=== PATIENT | male | born 1985 | race Caucasian/White ===

== ENCOUNTER 2023-05-07 14:23 | Emergency (ER) | payer OTHER, SELFPAY ==
[2023-05-07 14:24] VITALS: BP 138/94; PULSE 97; RESP 16; TEMP 36.1; O2SAT 100; BMI 33.9
--- NOTE | 2023-05-07 15:08 | VDLE_ITS ---
Reason For Study: Left leg pain RIGHT LEFT CFV is compressible, spontaneous, phasic, GSV is normal. competent and demonstrates normal CFV is compressible, spontaneous, phasic, augmentation. competent, and demonstrates normal Procedure augmentation. This is a venous duplex using B-mode, color FV is compressible, spontaneous, phasic, flow and spectral Doppler. competent and demonstrates normal Exam performed portable in ED. augmentation. A preliminary report was called and/or faxed POP V is compressible, spontaneous, phasic, to Dr. Camilo. competent and demonstrates normal augmentation. T/P Trunk is compressible. PTV is compressible. LT PerV is compressible. VL/Venous Duplex US, Unilateral Interpretation Summary Deep veins of the left lower extremity are patent and compressible segmentally. There is no evidence of left lower extremity deep vein thrombosis. The left great saphenous vein nima ears patent and compressible segmentally. Ordering Physician: Rashel Chisholm Performed By: Charley Ayers RVT
--- NOTE | 2023-05-07 18:56 | EDS_ITS ---
HPI History of Present Illness HPI Narrative: Patient presents with left lower leg pain that has been getting worse over the past 10 days. Patient states it is intermittent. Patient states it comes on gradually. Patient describes it as dull. Patient states nothing seems to make it worse. Patient states that sometimes walking and moving will make it get better. Patient admits to some very slight intermittent paresthesias but denies any weakness. Patient denies any trauma or injury. Patient denies any fevers or chills. Patient denies any back pain. Chief Complaint: Lower Extremity Injury Informant: patient Onset/Context/Timing Onset: Days (10) Context: Gradual Onset Timing: Intermittent Quality of Pain: Dull Location: Left knee, lower leg, and ankle Worsened by: Nothing Relieved by: Movement and ambulation Associated Symptoms Associated Symptoms: Positive for Parasthesia; Negative for Weakness or Loss of Funtion PFSH PFS Medical History (Updated 05/07/23 @ 19:[address] Samm Shoemaker DO) Hypertension Home Medications meloxicam 15 mg tablet 15 mg PO DAILY #14 tabs 05/07/23 [Rx Last Taken Unknown] Allergy/AdvReac Type Severity Reaction Status Date / Time No Known Allergies Allergy Verified 05/07/23 14:26 Surgical History (Updated 05/07/23 @ 18:[address] Samm Shoemaker DO) Hx of LASIK Hx of vasectomy Social History Smoking Status: Never smoker ROS ROS ED Constitutional Constitutional ED: Denies chills or fever(s) Eyes Eyes: Denies blurry vision or change in vision ENT ENT ED: Denies rhinorrhea or sore throat Cardiovascular Cardiovascular: Denies chest pain or palpitations Respiratory/Chest Respiratory/Chest: Denies cough or dyspnea Gastrointestinal Gastrointestinal: Denies nausea or vomiting Genitourinary Genitourinary ED: Denies dysuria or hematuria Musculoskeletal Musculoskeletal: Denies back pain or neck pain Integumentary Denies abscess or rash Neurologic Neurologic: Denies headache(s) or weakness Allergic/Immunologic Allergic/Immunologic ED: Denies mouth swelling or urticaria EXAM Physical Exam Const Vital Signs: 05/07/23 14:24 Temperature 96.9 F L Temperature Source Temporal Pulse Rate 97 Respiratory Rate 16 Blood Pressure 138/94 H Blood Pressure Mean 108 Pulse Ox 100 Oxygen Delivery Method Room Air Positive well nourished and well developed General Appearance ED: well developed and NAD HEENT Reports moist mucous membranes Neck full ROM and supple Extremity Extremity Narrative: There is slight tenderness over the lateral aspect of the left knee. There is no effusion. There is no bony crepitance or step-off noted. There is no calf tenderness. There is no palpable cords noted. There is no edema noted. There is good range of motion of the left knee and ankle. Strength is 5/5 bilaterally in the lower extremities. There are no sensory deficits noted. Posterior tibial pulses are equal bilaterally. Neuro oriented x3, CN's II-XII intact bilaterally, moves all extremities and no sensory deficits noted Sensorium / Orientation: alert Motor Exam: strength 5/5 throughout Psych mental status grossly normal Skin no wounds MDM MDM MDM Narrative Medical decision making narrative: Differential diagnosis includes DVT, neuropathy, and myalgia. Venous duplex of the left lower extremity was obtained to assess for DVT. Radiography Diagnostic Testing: Clinical Impression(s) from Imaging Studies Venous Doppler Study 05/07/23 15:08 Interpretation Summary Deep veins of the left lower extremity are patent and compressible segmentally. There is no evidence of left lower extremity deep vein thrombosis. The left great saphenous vein appears patent and compressible segmentally. Ordering Physician: Rashel Chisholm Performed By: Charley Ayers RVT Venous duplex of the left lower extremity was obtained. There is no evidence of DVT. Treatment and Re-Evaluation Narrative: Patient was advised of his findings. Patient was given a prescription for m eloxicam. Patient was instructed to follow-up with his primary care physician in 5 to 7 days. Patient was instructed return if worse in any way. Patient understood and was agreeable with the plan. All questions were answered. Discharge Plan Triage Chief Complaint: Lower Extremity Injury ED Provider: Samm Shoemaker Dx/Rx/DC Orders Clinical Impression: Pain in left lower leg, Hypertension Instructions: ED Pain, Acute, Uncertain Cause Prescriptions: New meloxicam 15 mg tablet 15 mg PO DAILY Qty: 14 0RF Primary Care Provider: NOT,DEFINED Referrals: NOT,DEFINED [Primary Care Provider] - 3-5 Days Disposition Disposition: Home, Self Care
--- OUTSIDE RECORDS SUMMARY | 2023-05-07 19:17 | XMS RPT_ITS | CCD ---
Author Name Unknown Address [address] [place] [address] Organization [facility] Care Team Providers Care Patient Financial Coordinator Name Role Phone Linda Balbuena Unavailable Unavailable Linda Balbuena Unavailable Unavailable Linda Balbuena Unavailable Unavailable Unavailable Unavailable Unavailable Linda Balbuena Primary Care Provider Linda Balbuena MD Primary Care Provider LINDA BALBUENA Attending Unavailable LINDA BALBUENA Primary Care Unavailable LINDA BALBUENA Primary Care Unavailable Linda Balbuena MD Primary Care Provider LINDA BALBUENA Primary Care Unavailable LINDA BALBUENA Primary Care Unavailable Medications Current Medications Medication Drug Class(es) Dates Sig (Normalized) Sig (Original) amoxicillin 500 mg oral tablet (1 source) Penicillin-class Antibacterial Start: 07-13-2022 End: 07-23-2022 take 1 tablet by mouth twice daily Amoxicillin 500 mg tablet Indications: Streptococcal pharyngitis Take 1 tablet by mouth twice daily for 10 days. 20 tablet 0 07/13/2022 07/23/2022 Active Completed/Discontinued Medications Medication Drug Class(es) Dates Sig (Normalized) Sig (Original) 12 hr fexofenadine hydrochloride 60 mg / pseudoephedrine hydrochloride 120 mg extended release oral tablet (3 sources) alpha-Adrenergic Agonist, Histamine-1 Receptor Antagonist Airam-D Allergy & Congestion 60-120 MG Oral Tablet Extended Release 12 Hour Refills: 0 Active loratadine 10 mg oral tablet (2 sources) loratadine (CLARITIN) 10 mg tablet Take 10 mg by mouth as needed. 0 Active Problems Active Problems Problem Classification Problem Date Documented Da te Episodic/Chronic Acute bronchitis (11 sources) Acute bronchitis; Translations: [Acute bronchitis] Episodic Allergic reactions (11 sources) Allergic condition; Translations: [Allergy, unspecified, initial encounter] Episodic Disorders of lipid metabolism (10 sources) Hyperlipidemia; Translations: [Other and unspecified hyperlipidemia] Chronic Essential hypertension (14 sources) Hypertensive disorder; Translations: [Unspecified essential hypertension] Onset: 12-11-2022 12-11-2022 Chronic Immunizations and screening for infectious disease (6 sources) Suspected disease caused by 2019-nCoV; Translations: [Contact with or exposure to other viral diseases] Episodic Inflammation; infection of eye (except that caused by tuberculosis or sexually transmitteddisease) (11 sources) Conjunctivitis; Translations: [Conjunctivitis, unspecified] Episodic Malaise and fatigue (12 sources) Fatigue; Translations: [Other malaise and fatigue] Episodic Other circulatory disease (11 sources) H/O: hypertension; Translations: [Personal history of other diseases of circulatory system] Episodic Other nutritional; endocrine; and metabolic disorders (3 sources) Obesity; Translations: [Obesity, unspecified] Chronic Other screening for suspected conditions (not mental disorders or infectious disease) (8 sources) Patient encounter status; Translations: [Screening for lipoid disorders] Episodic Other upper respiratory infections (1 source) Bacterial sinusitis; Translations: [Chronic sinusitis, unspecified] 03-07-2023 Chronic Other upper respiratory infections (20 sources) Acute sinusitis; Translations: [Acute maxillary sinusitis] Episodic Past or Other Problems Problem Classification Problem Date Documented Da te Episodic/Chronic Other circulatory disease (3 sources) Elevated blood-pressure reading, without diagnosis of hypertension; Translations: [Elevated blood pressure] Episodic Unclassified (2 sources) Screening status; Translations: [Screening cholesterol level] Unclassified (1 source) Patient encounter status; Translations: [Screening cholesterol level] Unclassified (8 sources) Elevated blood pressure; Translations: [Elevated blood pressure] NEGATED: Highlighted row has not occurred!Residual codes; unclassified (14 sources) Disease Episodic Results Test Name Value Interpretation Reference Range Facil ity Vital Signs Date Time Vital Sign Value Performing Clinician Facility 03-07-2023 14:01-0500 Body temperature 97.3 [degF] Krislyn Aberegg PA Work Phone: [facility] 03-07-2023 14:01-0500 Body weight 111.95 kg Krislyn Aberegg PA Work Phone: [facility] 03-07-2023 14:01-0500 Diastolic blood pressure 76 mm[Hg] Krislyn Aberegg PA Work Phone: [facility] 03-07-2023 14:01-0500 Heart rate 82 /min Krislyn Aberegg PA Work Phone: [facility] 03-07-2023 14:01-0500 Respiratory rate 16 /min Krislyn Aberegg PA Work Phone: [facility] 03-07-2023 14:01-0500 SaO2% (BldA) [Mass fraction] 98 % Krislyn Aberegg PA Work Phone: [facility] 03-07-2023 14:01-0500 Systolic blood pressure 120 mm[Hg] Krislyn Aberegg PA Work Phone: [facility] 12-11-2022 09:10-0400 Body mass index (BMI) [Ratio] 33.5 kg/m2 Linda Balbuena MD Work Phone: [facility] 12-11-2022 09:10-0400 Body temperature 98.1 [degF] Linda Balbuena MD Work Phone: [facility] 12-11-2022 09:10-0400 Body weight 112.04 kg Lidna Balbuena MD Work Phone: [facility] 12-11-2022 09:10-0400 Diastolic blood pressure 82 mm[Hg] Linda Balbuena MD Work Phone: [facility] 12-11-2022 09:10-0400 Systolic blood pressure 128 mm[Hg] Linda Balbuena MD Work Phone: [facility] 07-13-2022 07:54-0400 Body temperature 98.91 [degF] Tor Paz MD Work Phone: [facility] 07-13-2022 07:54-0400 Body weight 109.41 kg Tor Paz MD Work Phone: [facility] 07-13-2022 07:54-0400 Diastolic blood pressure 68 mm[Hg] Tor Paz MD Work Phone: [facility] 07-13-2022 07:54-0400 Heart rate 93 /min Tor Paz MD Work Phone: [facility] 07-13-2022 07:54-0400 Respiratory rate 18 /min Tor Paz MD Work Phone: [facility] 07-13-2022 07:54-0400 SaO2% (BldA) [Mass fraction] 97 % Tor Paz MD Work Phone: [facility] 07-13-2022 07:54-0400 Systolic blood pressure 124 mm[Hg] Tor Paz MD Work Phone: [facility] 12-08-2021 09:15-0400 Body height 182.88 cm Linda Balbuena Work Phone: [facility] Work Phone: 12-08-2021 09:15-0400 Body mass index (BMI) [Ratio] 32.01 kg/m2 Linda Balbuena Work Phone: [facility] Work Phone: 12-08-2021 09:15-0400 Body surface area Derived from formula 2.29 m2 Linda Balbuena Work Phone: [facility] Work Phone: 12-08-2021 09:15-0400 Body temperature 97.9 [degF] Linda Balbuena Work Phone: [facility] Work Phone: 12-08-2021 09:15-0400 Body weight 107.05 kg Linda Balbuena Work Phone: [facility] Work Phone: 12-08-2021 09:15-0400 Diastolic blood pressure 76 mm[Hg] Linda Balbuena Work Phone: [facility] Work Phone: 12-08-2021 09:15-0400 Systolic blood pressure 124 mm[Hg] Linda Balbuena Work Phone: [facility] Work Phone: 10-04-2021 13:14-0400 Body height 182.88 cm Linda Balbuena Work Phone: [facility] Work Phone: 10-04-2021 13:14-0400 Body mass index (BMI) [Ratio] 32.55 kg/m2 Linda Balbuena Work Phone: [facility] Work Phone: 10-04-2021 13:14-0400 Body surface area Derived from formula 2.3 m2 Linda Balbuena Work Phone: [facility] Work Phone: 10-04-2021 13:14-0400 Body temperature 97.5 [degF] Linda Balbuena Work Phone: [facility] Work Phone: 10-04-2021 13:14-0400 Body weight 108.86 kg Linda Balbuena Work Phone: [facility] Work Phone: 10-04-2021 13:14-0400 Diastolic blood pressure 82 mm[Hg] Linda Balbuena Work Phone: [facility] Work Phone: 10-04-2021 13:14-0400 Heart rate 70 /min Linda Balbuena Work Phone: [facility] Work Phone: 10-04-2021 13:14-0400 Respiratory rate 14 /min Linda Balbuena Work Phone: [facility] Work Phone: 10-04-2021 13:14-0400 SaO2% (BldA) [Mass fraction] 97 % Linda Balbuena Work Phone: [facility] Work Phone: 10-04-2021 13:14-0400 Systolic blood pressure 146 mm[Hg] Linda Balbuena Work Phone: [facility] Work Phone: 10-04-2021 13:14-0400 3 1 Linda Balbuena Work Phone: [facility] Work Phone: Encounters Encounter Date Encounter Type Care Provider Facility Start: 03-07-2023 End: 03-07-2023 ambulatory ERICKA IBIS Facility:[facility] Start: 03-07-2023 End: 03-07-2023 Patient encounter procedure Yojana BRITT Work Phone: [facility] Care Procedures Date Procedure Procedure Detail Performing Clinician Start: 12-08-2022 CBC W Auto Different ial panel - Blood LINDA IBIS Start: 12-08-2022 Comprehensive metabo lic 2000 panel - Serum or Plasma LINDA SUTTONRT Start: 12-08-2022 Lipid panel LINDA IBIS Start: 12-08-2022 TSH WITH REFLEX TO F REE T4 IF ABNORMAL LINDA BALBUENA Start: 12-08-2022 Lipid 1996 panel - S kleber or Plasma Linda Balbuena MD Work Phone: Start: 07-13-2022 STREP A MOLECULAR (POC) Tor aPz MD Work Phone: Tonsillectomy Linda Sutton rt Plan of Treatment Date Care Activity Detail Author Start: 2033 Zoster Vaccines (1 o f 2) Zoster Vaccines (1 of 2) [facility] Start: 12-09-2027 Lipid panel Lipid Panel [facility] Start: 10-19-2027 Lipid 1996 panel - Serum or Plasma Lipid Screening [facility] Start: 10-25-2026 LIPID SCREEN LIPID SCREEN [facility] Start: 12-11-2022 PHYSICAL, Provider: Linda Balbuena, Status: Pen, Time: 9:00 AM PHYSICAL, Provider: Linda Balbuena, Status: Pen, Time: 9:00 AM [facility] Work Phone: Start: 12-01-2022 Covid-19 Vaccine ( season) Covid-19 Vaccine () [facility] Start: 12-01-2022 Influenza vaccination [facility] Start: 04-02-2022 DEPRESSION ASSESSMENT DEPRESSI ON ASSESSMENT [facility] Start: 12-08-2021 PHYSICAL, Provider: Linda Balbuena, Status: Pen, Time: 9:00 AM PHYSICAL, Provider: Lidna Balbuena, Status: Pen, Time: 9:00 AM [facility] Work Phone: Start: 10-13-2020 COVID-19 VACCINE (3 - Booster for Pfizer series) COVID-19 VACCINE (3 - Booster for Pfizer series) [facility] Start: 10-13-2020 COVID-19 Vaccine (3 - Pfizer series) COVID-19 Vaccine (3 - Pfizer series) [facility] Start: 2005 DTaP/Tdap/Td Vaccine s (1 - Tdap) DTaP/Tdap/Td Vaccines (1 - Tdap) [facility] Start: 2002 Urine microalbumin profile [facility] Start: 2001 HEPATITIS C SCREENING HEPATITI S C SCREENING [facility] Start: 2001 Hepatitis C screening Hepatiti s C Screening [facility] Start: 2001 HIV SCREENING HIV SCREENING [facility] Start: 1984 MMR Vaccines (1 of 1 - Standard series) MMR Vaccines (1 of 1 - Standard series) [facility] Start: 1984 Varicella vaccination Varicell a Vaccines (1 of 2 - 2-dose childhood series) [facility] Start: 1983 HEPATITIS B (1 of 3 - 3-dose series) HEPATITIS B (1 of 3 - 3-dose series) [facility] Start: 1983 HIV screening HIV Screening [facility] Start: 1983 Yearly Adult Physical Yearly A dult Physical [facility] Work Phone: NEGATED: Highlighted row has been ruled out! Planned Goals not documented [facility] Work Phone: Immunizations Immunization Date Immunization Notes Care Provider Fa cili 08-18-2020 Pfizer-BioNTech COVI D-19 Vacc 30 MCG/0.3ML Intramuscular Suspension ErickaSarah Balbuena Work Phone: [facility] Work Phone: 07-29-2020 Pfizer-BioNTech COVI D-19 Vacc 30 MCG/0.3ML Intramuscular Suspension ErickaSarah Balbuena Work Phone: [facility] Work Phone: 05-06-2010 hepatitis B vaccine, adult dosage Linda Balbuena Work Phone: [facility] Work Phone: 11-30-2009 hepatitis B vaccine, adult dosage ErickaSarah Balbuena Work Phone: [facility] Work Phone: 10-28-2009 hepatitis B vaccine, adult dosage Linda Balbuena Work Phone: [facility] Work Phone: Payers Date Payer Category Payer Unknown 2018 Unknown [id number] 1985 Unknown [id number] 1985 Unknown [id number] Social History Date Type Detail Facility Start: 03-10-2020 End: 03-07-2023 Never a smoker Never a smoker [facility] Work Phone: Start: 07-13-2022 Tobacco smoking status NHIS Ex-smoker [facility] History of tobacco use Current smoker [facility] Start: 07-13-2022 Tobacco use and exposure Former smokeless tobacco user [facility] Start: 1985 Sex Assigned At Not on file [facility] Start: 12-11-2022 Tobacco smoking status ALIS Never smoked tobacco [facility] Work Phone: Start: 12-11-2022 Tobacco use and exposure Smokeless tobacco non-user [facility] Work Phone: Start: 12-11-2022 Alcohol intake Not Asked [facility] Work Phone: Start: 12-11-2022 Alcohol Comment socially [facility] Work Phone: Start: 03-10-2020 End: 03-07-2023 Gender identity Not on file [facility] Work Phone: National Score (1-100), lower number is lower risk Not on file [facility] NEGATED: Highlighted row - Never smoker [facility] Work Phone: NEGATED: Highlighted rowStart: NINF History of tobacco use Passive smoker [facility] Work Phone: Functional Status Date Assessment Result Facility NEGATED: Highlighted row Functional performance Functional status health issues are not documented Disease [facility] Work Phone: Mental Status Date Assessment Result Facility NEGATED: Highlighted row Cognitive function [Interpretation] Cognitive status health issues are not documented Disease [facility] Work Phone: Clinical Notes 09-27-2021 to 03-07-2023 Yojana Young PA - 03/07/2023 2:11 PM Marleny Balbuena MD - 12/11/2022 9:00 AM YOHANATTor Paz MD - 07/13/2022 7:56 AM EDT Note Date & Type Note Facility 03-07-2023 Note HNO ID: [id number] Author: Yojana Young PA Service: ? Author Type: Physician Towerman Type: Progress Notes Filed: 03/07/2023 2:13 PM Note Text: This note was created using [employer]. Subjective Michael Duong is a 37 year old male. HPI 37-year-old male presents for sinus congestion, sinus pressure, headaches x about 9 days. Patient states that about 9 days ago he started with congestion and itchy eyes. He states that symptoms worsened over the weekend. He did have a fever for 1 day. He has been taking Motrin. He states that his congestion is now worse. He has sinus pressure, sinus headache and pain. He has mild cough. No sore throat. No other complaint. PAST MEDICAL HISTORY Diagnosis Date Hypertension PAST SURGICAL HISTORY Procedure Laterality Date LASIK TONSILLECTOMY HX VASECTOMY ALLERGIES Patient has no known allergies. MEDICATIONS loratadine (CLARITIN) 10 mg tablet Take 10 mg by mouth as needed. enalapril (VASOTEC) 20 mg tablet Take 20 mg by mouth once daily. amoxicillin-clavulanate potassium (AUGMENTIN) 875-125 mg per tablet Take 1 tablet by mouth two times a day for 5 days. No family history on file. Social History Tobacco Use Smoking status: Former Smokeless tobacco: Former Vaping Use Vaping Use: Never used Substance Use Topics Drug use: Never Review of Systems Constitutional: Negative for chills and fever. HENT: Positive for congestion, sinus pressure and sinus pain. Negative for sore throat. Respiratory: Positive for cough. Negative for shortness of breath. Gastrointestinal: Negative for diarrhea and vomiting. Neurological: Positive for headaches. Objective BP 120/76 Pulse 82 Temp 36.3 ?C (97.3 ?F) Resp 16 Wt 111.9 kg (246 lb 12.8 oz) SpO2 98% Physical Exam Vitals and nursing note reviewed. Constitutional: General: He is not in acute distress. Appearance: Normal appearance. He is not toxic-appearing. HENT: Right Ear: Tympanic membrane and ear canal normal. Left Ear: Tympanic membrane and ear canal normal. Nose: Mucosal edema and congestion present. Right Sinus: Maxillary sinus tenderness present. Left Sinus: Maxillary sinus tenderness present. Mouth/Throat: Mouth: Mucous membranes are moist. Eyes: Conjunctiva/sclera: Conjunctivae normal. Cardiovascular: Rate and Rhythm: Normal rate and regular rhythm. Pulmonary: Effort: Pulmonary effort is normal. Breath sounds: Normal breath sounds. Skin: General: Skin is warm and dry. Neurological: Mental Status: He is alert. Assessment and Plan ASSESSMENT/PLAN: 1. Bacterial sinusitis - ICD9: 473.9, 041.9, ICD10: J32.9, B96.89 - Will begin treatment with Augmentin 875 mg PO BID for 5 days - The patient should also be given Flonase, nasal decongestant for the first 5-7 days of treatment. - Supportive care with plenty of fluids, rest, and analgesia prn. Diagnosis and treatment plan were discussed and questions were answered to the patient's satisfaction. Pt acknowledged understanding of concepts and follow up plan. Specific signs and symptoms that would indicate the need for higher level of care were discussed in detail warranting prompt ER evaluation. LORENZA Saavedra [facility] 03-07-2023 History of Present illness Narrative This note was created using [employer]. Subjective Michael Duong is a 37 year old male. HPI 37-year-old male presents for sinus congestion, sinus pressure, headaches x about 9 days. Patient states that about 9 days ago he started with congestion and itchy eyes. He states that symptoms worsened over the weekend. He did have a fever for 1 day. He has been taking Motrin. He states that his congestion is now worse. He has sinus pressure, sinus headache and pain. He has mild cough. No sore throat. No other complaint. PAST MEDICAL HISTORY Diagnosis Date Hypertension PAST SURGICAL HISTORY Procedure Laterality Date LASIK TONSILLECTOMY HX VASECTOMY ALLERGIES Patient has no known allergies. MEDICATIONS loratadine (CLARITIN) 10 mg tablet Take 10 mg by mouth as needed. enalapril (VASOTEC) 20 mg tablet Take 20 mg by mouth once daily. amoxicillin-clavulanate potassium (AUGMENTIN) 875-125 mg per tablet Take 1 tablet by mouth two times a day for 5 days. No family history on file. Social History Tobacco Use Smoking status: Former Smokeless tobacco: Former Vaping Use Vaping Use: Never used Substance Use Topics Drug use: Never Review of Systems Constitutional: Negative for chills and fever. HENT: Positive for congestion, sinus pressure and sinus pain. Negative for sore throat. Respiratory: Positive for cough. Negative for shortness of breath. Gastrointestinal: Negative for diarrhea and vomiting. Neurological: Positive for headaches. Objective BP 120/76 Pulse 82 Temp 36.3 C (97.3 F) Resp 16 Wt 111.9 kg (246 lb 12.8 oz) SpO2 98% Physical Exam Vitals and nursing note reviewed. Constitutional: General: He is not in acute distress. Appearance: Normal appearance. He is not toxic-appearing. HENT: Right Ear: Tympanic membrane and ear canal normal. Left Ear: Tympanic membrane and ear canal normal. Nose: Mucosal edema and congestion present. Right Sinus: Maxillary sinus tenderness present. Left Sinus: Maxillary sinus tenderness present. Mouth/Throat: Mouth: Mucous membranes are moist. Eyes: Conjunctiva/sclera: Conjunctivae normal. Cardiovascular: Rate and Rhythm: Normal rate and regular rhythm. Pulmonary: Effort: Pulmonary effort is normal. Breath sounds: Normal breath sounds. Skin: General: Skin is warm and dry. Neurological: Mental Status: He is alert. Assessment and Plan ASSESSMENT/PLAN: 1. Bacterial sinusitis - ICD9: 473.9, 041.9, ICD10: J32.9, B96.89 - Will begin treatment with Augmentin 875 mg PO BID for 5 days - The patient should also be given Flonase, nasal decongestant for the first 5-7 days of treatment. - Supportive care with plenty of fluids, rest, and analgesia prn. Diagnosis and treatment plan were discussed and questions were answered to the patient's satisfaction. Pt acknowledged understanding of concepts and follow up plan. Specific signs and symptoms that would indicate the need for higher level of care were discussed in detail warranting prompt ER evaluation. LORENZA Saavedra documented in this encounter [facility] 12-11-2022 History of Present illness Narrative Subjective Patient ID: Michael Duong is a 37 y.o. male who presents for Annual Exam (EP. Here for CPE.). HPI Feels well, no specific complaints or concerns today. bps have been ok FH: no CAD Review of Systems General: no fever or night sweats, no change in weight Eyes: no vision disturbance ENT: no mouth lesions, no sore throat, and no dysphagia CV: no chest pain, no palpitations, no lower extremity edema Resp: no shortness of breath, no cough GI: no abdominal pain, no change in bowel habits : no urinary problems MSK: no arthralgias, myalgias, or back pain Skin; no rashes or new/changed skin lesions Neuro: no headaches Objective Visit Vitals BP 128/82 Temp 36.7 C (98.1 F) (Oral) Physical Exam Appears well. HEENT: OP clear. Sclera white. PERRL. EACs and TMs clear. Neck: Supple, no masses, lymphadenopathy, or thyromegaly. CVS: RRR, no murmurs. No peripheral edema. Resp: Clear and equal breath sounds. Normal inspirations and expirations. Abd: Soft, non-tender, no mass or HSM. Male: defers exam Skin: No suspicious lesions. Assessment/Plan Diagnoses and all orders for this visit: Healthcare maintenance Primary hypertension Patient does not want to start chol-lowering medication- he will work on diet Linda Balbuena MD Family Medicine [facility] documented in this encounter [facility] Work Phone: 07-13-2022 Note HNO ID: [id number] Author: Tor Paz MD Service: ? Author Type: Physician Type: Progress Notes Filed: 07/13/2022 8:14 AM Note Text: Patient presents with: Pain, Throat: Pt reported throat pain, fever, chills x6 days. HPI: Feeling sick for 6 days. Positive symptoms: Sore throat, Fever, Chills, Body Aches, Malaise, Negative symptoms: Cough, Rhinorrhea, Vomiting, OTC: Nyquil, Ibuprofen, airam D MEDICATIONS: Current Outpatient Medications Medication Sig loratadine (CLARITIN) 10 mg tablet Take 10 mg by mouth as needed. enalapril (VASOTEC) 20 mg tablet Take 20 mg by mouth once daily. No current facility-administered medications for this visit. ALLERGIES: ALLERGIES No Known Allergies VITALS: BP 124/68 Pulse 93 Temp 37.2 ?C (98.9 ?F) (Tympanic) Resp 18 Wt 109.4 kg (241 lb 3.2 oz) SpO2 97% PHYSICAL EXAM: GEN: pleasant, alert, no acute distress HEENT: PERRL, EOMI, conjunctiva clear Ears: canals clear. TMs without erythema, bulge, or effusion Sinuses: non-tender frontal sinus, non-tender maxillary sinuses Throat: moist mucous membranes, posterior pharyngeal beefy erythema, +exudate Neck: supple, no thyromegaly, anterior chain tenderness without discrete lymphadenopathy HEART: regular rate and rhythm, no murmurs LUNGS: clear to auscultation, no wheezes or crackles, no increased WOB ASSESSMENT/PLAN: 1. Streptococcal pharyngitis - ICD9: 034.0, ICD10: J02.0 (primary diagnosis) 2. Sore throat - ICD9: 462, ICD10: J02.9 - Alere Strep Test positive - Discussed supportive care treatment with as needed analgesia. - Contagious disease precautions discussed- including considered contagious until on antibiotics for 24 hours - STREP A MOLECULAR (POC) - AMOXICILLIN 500 MG TABLET Tor Paz MD [facility] 07-13-2022 History of Present illness Narrative Patient presents with: Pain, Throat: Pt reported throat pain, fever, chills x6 days. HPI: Feeling sick for 6 days. Positive symptoms: Sore throat, Fever, Chills, Body Aches, Malaise, Negative symptoms: Cough, Rhinorrhea, Vomiting, OTC: Nyquil, Ibuprofen, airam D MEDICATIONS: Current Outpatient Medications Medication Sig loratadine (CLARITIN) 10 mg tablet Take 10 mg by mouth as needed. enalapril (VASOTEC) 20 mg tablet Take 20 mg by mouth once daily. No current facility-administered medications for this visit. ALLERGIES: ALLERGIES No Known Allergies VITALS: BP 124/68 Pulse 93 Temp 37.2 C (98.9 F) (Tympanic) Resp 18 Wt 109.4 kg (241 lb 3.2 oz) SpO2 97% PHYSICAL EXAM: GEN: pleasant, alert, no acute distress HEENT: PERRL, EOMI, conjunctiva clear Ears: canals clear. TMs without erythema, bulge, or effusion Sinuses: non-tender frontal sinus, non-tender maxillary sinuses Throat: moist mucous membranes, posterior pharyngeal beefy erythema, +exudate Neck: supple, no thyromegaly, anterior chain tenderness without discrete lymphadenopathy HEART: regular rate and rhythm, no murmurs LUNGS: clear to auscultation, no wheezes or crackles, no increased WOB ASSESSMENT/PLAN: 1. Streptococcal pharyngitis - ICD9: 034.0, ICD10: J02.0 (primary diagnosis) 2. Sore throat - ICD9: 462, ICD10: J02.9 - Alere Strep Test positive - Discussed supportive care treatment with as needed analgesia. - Contagious disease precautions discussed- including considered contagious until on antibiotics for 24 hours - STREP A MOLECULAR (POC) - AMOXICILLIN 500 MG TABLET Tor Paz MD documented in this encounter [facility] 09-30-2021 History of Present illness Narrative EP. Here for CPE and blood work results.Michael is a 36 year old male presenting today for his annual physical exam and blood work Results.-Feeling well, no concerns or complaints.-Reports going to urgent care in September after catching a virus. It lasted about two weeks. He had symptoms of all over body aches and muscle weakness. Also states some insomnia.-Since recovering he has not been sick since.-All spring and part of summer he has had some chest discomfort that radiates into his underarm. Mainly notices this when his BP is elevated.-Checks his pressures regularly at home. States it has been lowering, lowest he read was 106/68.-Reviewed blood work results.-Daily diet consists mainly of salads and about 2-3 servings of beans. Has not been eating any foods that would cause elevated triglycerides.-Recently had an eye exam and soon will be going for a deep cleaning of his gums. [facility] Work Phone: 09-27-2021 History of Present illness Narrative 36 year old male presents with 5 days of fatigue, weakness, achiness and bilateral testicular pain. 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 He states that the day after this his upper body was achy and tired. He states that his muscle aches in his arm cause him significant weakness. Patient also states that while he was doing farm work he felt a sharp brief pain in the back of his neck which he assumed was a bug bite. No bug was actually seen and no ana was left by the incident. He has no rashes bruising or sores on his body. He is also having complaint of bilateral testicle pain but denies any dysuria or urine symptoms. No testicular swelling. No measured fevers but has had chills at times. He states he has had a slight cough but no shortness of breath or chest pains. No known exposures to pneumonia, COVID-19 or other infections. He has taken Advil for the above symptoms. [facility] Work Phone: [facility] Healthcare maintenance- Primary Primary hypertension Unspecified essential hypertension documented in this encounter [facility] Work Phone: Evaluation note* Diagnosis Bacterial sinusitis- Primary Unspecified sinusitis (chronic) [facility] EPV. Here for CPE. * Michael is a 35 year old male presenting for a complete physical exam. * - He states that work has been stressful recently. * - He reports that he has noticed his blood pressure being up secondary to him running low on medication and having to stretch it out. * - He states that his diet has been awful and he acknowledges that he needs to do better. [facility] Work Phone: Family History No Family History Records Found Sibling Name Dates Details Family history of lymphoma(V 16.7, Z80.7) Status:Active Grandparent Name Dates Details Family history of stroke(V17 .1, Z82.3) Status:Active Family history of hypertensi on(V17.49, Z82.49) Status:Active Family history of cardiac di sorder(V17.49, Z82.49) Status:Active Family history of malignant neoplasm of brain(V16.8, Z80.8) Status:Active Family history of glaucoma(V 19.11, Z83.511) Status:Active Family history of hyperchole sterolemia(V18.19, Z83.42) Status:Active Mother Name Dates Details Family history of glaucoma(V 19.11, Z83.511) Status:Active Family history of alcoholism (V17.0, Z81.1) Status:Active Family history of hyperchole sterolemia(V18.19, Z83.42) Status:Active Sibling Name Dates Details Family history of lymphoma(V 16.7, Z80.7) Status:Active Grandparent Name Dates Details Family history of stroke(V17 .1, Z82.3) Status:Active Family history of hypertensi on(V17.49, Z82.49) Status:Active Family history of cardiac di sorder(V17.49, Z82.49) Status:Active Family history of malignant neoplasm of brain(V16.8, Z80.8) Status:Active Family history of glaucoma(V 19.11, Z83.511) Status:Active Family history of hyperchole sterolemia(V18.19, Z83.42) Status:Active Mother Name Dates Details Family history of glaucoma(V 19.11, Z83.511) Status:Active Family history of alcoholism (V17.0, Z81.1) Status:Active Family history of hyperchole sterolemia(V18.19, Z83.42) Status:Active Sibling Name Dates Details Family history of lymphoma(V 16.7, Z80.7) Status:Active Grandparent Name Dates Details Family history of stroke(V17 .1, Z82.3) Status:Active Family history of hypertensi on(V17.49, Z82.49) Status:Active Family history of cardiac di sorder(V17.49, Z82.49) Status:Active Family history of malignant neoplasm of brain(V16.8, Z80.8) Status:Active Family history of glaucoma(V 19.11, Z83.511) Status:Active Family history of hyperchole sterolemia(V18.19, Z83.42) Status:Active Mother Name Dates Details Family history of glaucoma(V 19.11, Z83.511) Status:Active Family history of alcoholism (V17.0, Z81.1) Status:Active Family history of hyperchole sterolemia(V18.19, Z83.42) Status:Active Unknown Family Member Name Dates Details Family history of stroke: Gr andparent(V17.1, Z82.3) Status:Active Family history of hypertensi on: Grandparent(V17.49, Z82.49) Status:Active Family history of cardiac di sorder: Grandparent(V17.49, Z82.49) Status:Active Family history of malignant neoplasm of brain: Grandparent(V16.8, Z80.8) Status:Active Family history of lymphoma: Sibling(V16.7, Z80.7) Status:Active Family history of glaucoma: Mother, Grandparent(V19.11, Z83.511) Status:Active Family history of alcoholism : Mother(V17.0, Z81.1) Status:Active Family history of hyperchole sterolemia: Mother, Grandparent(V18.19, Z83.42) Status:Active Unknown Family Member Name Dates Details Family history of hyperchole sterolemia: Mother, Grandparent(V18.19, Z83.42) Status:Active Family history of alcoholism : Mother(V17.0, Z81.1) Status:Active Family history of glaucoma: Mother, Grandparent(V19.11, Z83.511) Status:Active Family history of lymphoma: Sibling(V16.7, Z80.7) Status:Active Family history of malignant neoplasm of brain: Grandparent(V16.8, Z80.8) Status:Active Family history of cardiac di sorder: Grandparent(V17.49, Z82.49) Status:Active Family history of hypertensi on: Grandparent(V17.49, Z82.49) Status:Active Family history of stroke: Gr andparent(V17.1, Z82.3) Status:Active Unknown Family Member Name Dates Details Family history of stroke: Gr andparent(V17.1, Z82.3) Status:Active Family history of hypertensi on: Grandparent(V17.49, Z82.49) Status:Active Family history of cardiac di sorder: Grandparent(V17.49, Z82.49) Status:Active Family history of malignant neoplasm of brain: Grandparent(V16.8, Z80.8) Status:Active Family history of lymphoma: Sibling(V16.7, Z80.7) Status:Active Family history of glaucoma: Mother, Grandparent(V19.11, Z83.511) Status:Active Family history of alcoholism : Mother(V17.0, Z81.1) Status:Active Family history of hyperchole sterolemia: Mother, Grandparent(V18.19, Z83.42) Status:Active Unknown Family Member Name Dates Details Family history of stroke: Gr andparent(V17.1, Z82.3) Status:Active Family history of hypertensi on: Grandparent(V17.49, Z82.49) Status:Active Family history of cardiac di sorder: Grandparent(V17.49, Z82.49) Status:Active Family history of malignant neoplasm of brain: Grandparent(V16.8, Z80.8) Status:Active Family history of lymphoma: Sibling(V16.7, Z80.7) Status:Active Family history of glaucoma: Mother, Grandparent(V19.11, Z83.511) Status:Active Family history of alcoholism : Mother(V17.0, Z81.1) Status:Active Family history of hyperchole sterolemia: Mother, Grandparent(V18.19, Z83.42) Status:Active Unknown Family Member Name Dates Details Family history of stroke: Gr andparent(V17.1, Z82.3) Status:Active Family history of hypertensi on: Grandparent(V17.49, Z82.49) Status:Active Family history of cardiac di sorder: Grandparent(V17.49, Z82.49) Status:Active Family history of malignant neoplasm of brain: Grandparent(V16.8, Z80.8) Status:Active Family history of lymphoma: Sibling(V16.7, Z80.7) Status:Active Family history of glaucoma: Mother, Grandparent(V19.11, Z83.511) Status:Active Family history of alcoholism : Mother(V17.0, Z81.1) Status:Active Family history of hyperchole sterolemia: Mother, Grandparent(V18.19, Z83.42) Status:Active Unknown Family Member Name Dates Details Family history of stroke: Gr andparent(V17.1, Z82.3) Status:Active Family history of hypertensi on: Grandparent(V17.49, Z82.49) Status:Active Family history of cardiac di sorder: Grandparent(V17.49, Z82.49) Status:Active Family history of malignant neoplasm of brain: Grandparent(V16.8, Z80.8) Status:Active Family history of lymphoma: Sibling(V16.7, Z80.7) Status:Active Family history of glaucoma: Mother, Grandparent(V19.11, Z83.511) Status:Active Family history of alcoholism : Mother(V17.0, Z81.1) Status:Active Family history of hyperchole sterolemia: Mother, Grandparent(V18.19, Z83.42) Status:Active Unknown Family Member Name Dates Details Family history of stroke: Gr andparent(V17.1, Z82.3) Status:Active Family history of hypertensi on: Grandparent(V17.49, Z82.49) Status:Active Family history of cardiac di sorder: Grandparent(V17.49, Z82.49) Status:Active Family history of malignant neoplasm of brain: Grandparent(V16.8, Z80.8) Status:Active Family history of lymphoma: Sibling(V16.7, Z80.7) Status:Active Family history of glaucoma: Mother, Grandparent(V19.11, Z83.511) Status:Active Family history of alcoholism : Mother(V17.0, Z81.1) Status:Active Family history of hyperchole sterolemia: Mother, Grandparent(V18.19, Z83.42) Status:Active Summary Purpose Advance Directives No Advanced Directives Records FoundNo Advanced Directives Records FoundNo Advanced Directives Records FoundNo Advanced Directives Records FoundNo Advanced Directives Records FoundNo Advanced Directives Records Found Additional Source Comments (unrecognized sect ion and content) No Status Records FoundNo Status Records FoundNo Status Records FoundNo Status Records FoundNo Status Records FoundNo Status Records Found INFORMATION SOURCE (unrecogn ized section and content) DATE CREATED AUTHOR AUTHOR'S ORGANIZ ATION 12/09/2021 [employer] DATE CREATED AUTHOR AUTHOR'S ORGANIZ ATION 12/09/2022 [facility] DATE CREATED AUTHOR AUTHOR'S ORGANIZ ATION 12/11/2022 [facility] DATE CREATED AUTHOR AUTHOR'S ORGANIZ ATION 12/12/2022 [facility] DATE CREATED AUTHOR AUTHOR'S ORGANIZ ATION 03/10/2023 [facility] Source Comments (unrecognize d section and content) In the event this informatio n is protected by the Federal Confidentiality of Alcohol and Drug Abuse Patient Records regulations: The Federal rules restrict any use of the information to criminally investigate or prosecute any alcohol or drug abuse patient.[facility] the event this information is protected by the Federal Confidentiality of Alcohol and Drug Abuse Patient Records regulations: The Federal rules restrict any use of the information to criminally investigate or prosecute any alcohol or drug abuse patient.[facility] Reason for Visit (unrecogniz ed section and content) Reason Comments Annual Exam EP. Here for CPE. Reason Comments Sinus Problem Drainage and headach es x1 week with yellow drainage. Care Teams (unrecognized sec tion and content) Patient Financial Coordinator Relationship Specialty Start Date End Date Linda Balbuena MD [address] [facility] [place] [address] PCP - General 02/14/11 Patient Financial Coordinator Relationship Specialty Start Date End Date Linda Balbuena MD [address] [facility] [address] [place] [address] PCP - General Family Medicine 10/16/17 FOR RECORDS PERTAINING TO PATIENTS WHO ARE OR HAVE BEEN ENROLLED IN A CHEMICAL DEPENDENCY/SUBSTANCEABUSE PROGRAM, SOME INFORMATION MAY BE OMITTED. This clinical summary was aggregated from multiple sources. Caution should be exercised in using it in the provision of clinical care. This summary normalizes information from multiple sources, and as a consequence, information in this document may materially change the coding, format and clinical context of patient data. In addition, data may be omitted in some cases. CLINICAL DECISIONS SHOULD BE BASED ON THE PRIMARY CLINICAL RECORDS. [employer] provides no warranty or guarantee of the accuracy or completeness of information in this document.
== END 2023-05-07 19:20 | disposition home or self-care (01) ==
LOC: ED 19:14
PROVIDERS: Emergency Provider Emergency Medicine; PCP General Practice; Visit Provider Emergency Medicine
DX: M79.662 Pain in left lower leg (principal); I10 Essential (primary) hypertension
CPT/HCPCS: 93971; 99282